=== PATIENT | male | born 1950 | race Caucasian/White ===

== ENCOUNTER → 2018-02-18 | Outpatient (CLI) | payer BC, OTHER ==
--- NOTE | 2018-02-18 10:44 | DIAGNOSTIC IMAGING REPORT ---
GI SERIES W/AIR ROUTINE CLINICAL HISTORY: 67 years-old Male with GASTROESOPHAGEAL REFLUX. Patient complains of reflux with reported history of prior Mitch fundoplication TECHNIQUE: A standard air contrast upper GI series was performed following administration of barium and effervescent crystals. Multiple spot fluoroscopic images were obtained and provided for review. COMPARISON STUDY: None available FLUOROSCOPY TIME: 1.5 minutes. 29 total images were submitted. FINDINGS: The patient swallowed barium without difficulty. No aspiration was definitively visualized. The esophagus distended normally with barium and effervescent crystals. No strictures, mucosal ulcerations, or intraluminal mass lesions were identified involving the esophagus. There was no significant gastroesophageal reflux. Barium was seen to flow freely through the gastroesophageal junction. No active reflux was demonstrated with Valsalva maneuver. Evaluation of the stomach demonstrates no gastric mucosal irregularity or filling defect. No definite evidence of a prior Mitch fundoplication. The duodenal bulb and sweep appear unremarkable. IMPRESSION: Unremarkable upper GI without significant gastroesophageal reflux identified. The above report was generated using voice recognition software. It may contain grammatical, syntax or spelling errors. Electronically signed by: Bonifacio Gonzalez M.D. 02/18/2018 10:43 AM Dictated Date/Time: 02/18/2018 10:40 AM
== END | disposition home or self-care (01) ==
LOC: C.RAD 10:08
PROVIDERS: ATTEND Physician Assistant
DX: K21.9 Gastro-esophageal reflux disease without esophagitis (principal); Z98.890 Other specified postprocedural states